=== PATIENT | female | born 1950 | race Caucasian/White ===

== ENCOUNTER 2016-04-23 08:33 | Day surgery (SDC) | payer MEDICARE, BC ==
[2016-04-16 14:04] LABS: HEMATOCRIT 35.4 % (36.0-48.0); HEMOGLOBIN 11.4 g/dL (12.0-16.0)
[2016-04-16 14:12] LABS: CALCIUM, SERUM 9.5 MG/DL (8.5-10.4); CHLORIDE, SERUM 104 MMOL/L (96-112); CO2 (CARBON DIOXIDE) 24 MMOL/L (24-34); GFR AFRICAN AMERICAN 55 ML/MIN (>=60); GFR NON AFRICAN AMERICAN 47 ML/MIN (>=60); POTASSIUM, SERUM 4.4 MMOL/L (3.5-5.3); SODIUM, SERUM 140 MMOL/L (135-148)
[2016-04-16 14:13] LABS: BUN (BLOOD UREA NITROGEN) 21 MG/DL (6-23); GLUCOSE, SERUM 120 MG/DL (60-99)
--- NOTE | ~2016-04-23 | OP ---
Record Of Operation [facility] [address] [place]. [address] NAME: LINA DAWSON : 48 STATUS : [place] [facility] [place] PAT#: [id number] AGE: 65 ADM/REG DATE : 04/23/16 MR#: [id number] REPORT SERV DATE: 04/23/16 DICTATED BY: SINCERE ZUÑIGA DATE: 04/23/16 REPORT STATUS : Draft TRANSCRIBED BY: MODL DATE: 04/23/16 DATE OF PROCEDURE: 04/23/2016 PREOPERATIVE DIAGNOSES: 1. Obstructive sleep apnea syndrome. 2. Septal deviation. 3. Bilateral inferior turbinate hypertrophy. 4. Uvular redundancy. 5. Chronic nasal obstruction. POSTOPERATIVE DIAGNOSES: 1. Obstructive sleep apnea syndrome. 2. Septal deviation. 3. Bilateral inferior turbinate hypertrophy. 4. Uvular redundancy. 5. Chronic nasal obstruction. PROCEDURES: 1. Uvulopalatopharyngoplasty. 2. Septoplasty. 3. Bilateral inferior turbinoplasty. SURGEON: Sincere Zuñiga M.D. ANESTHESIA: General. COMPLICATIONS: None. COUNTS: All counts correct following the procedure. ESTIMATED BLOOD LOSS: 25 mL. PREOPERATIVE INFORMED: We discussed the risks and benefits of surgery including, but not limited to bleeding, infection, possible CSF leak, possible septal perforation, possible saddle nose deformity, possible persistent nasal obstruction, possible need for revision surgery, possible uvulopalatal incompetence, possible persistent obstructive sleep apnea syndrome requiring further with the CPAP versus more advanced sleep surgery, and she understands the risks and benefits of surgery and consent is on chart. PROCEDURE IN DETAIL: The patient was brought to the operative suite and placed on the operating table in the supine position. General endotracheal anesthesia was initiated without incident using the laser endotracheal tube. The patient's head and neck was cleaned, prepped and draped in the usual sterile fashion. Following this, moistened eye pads were placed on the patient's eyes. Attention was then taken to the oral cavity. A Josue-Sage retractor was carefully inserted Record Of [facility] [address] [place]. [address] NAME: LINA DAWSON : 48 STATUS : REG [facility] [place] PAT#: [id number] AGE: 65 ADM/REG DATE : 04/23/16 MR#: [id number] REPORT SERV DATE: 04/23/16 DICTATED BY: SINCERE ZUÑIGA DATE: 04/23/16 REPORT STATUS : Draft TRANSCRIBED BY: WILIAM DATE: 04/23/16 in the oral cavity and used to retract the tongue anteriorly and inferiorly in order to visualize the oropharynx. The soft palate, uvula, and anterior tonsillar pillars were injected with 1% Lidocaine with 1:100,000 epinephrine for hemostasis. Approximately 6.0 cc. was used. Following this a # 12-blade scalpel was used to make an incision down both anterior tonsillar pillars then across the palate to the level of the base of the uvula. Attention was then taken to the nose and both sides of the septum, as well as the inferior turbinates were injected with 1% Lidocaine with 1:100,000 epinephrine for hemostasis. Approximately 12.0 cc. was used. Following this, a #15-blade scalpel was used to perform a left hemitransfixion incision down to the underlying septal cartilage. The mucoperichondrial flap was raised along the left side of the septum using a Meigs and Hopewell elevators. The mucoperiosteum was raised off of the maxillary crest using a Gamez elevator. A thin strip of cartilaginous septum along the maxillary crest was removed using the Hopewell elevator and the bony cartilaginous junction was using the Luis Felipe elevator. The mucoperiosteum was raised on both sides of the bony nasal septum. The deviated bony nasal septum was taken down using open [place] forceps and Tatiana forceps. The deviated maxillary crest was also removed using Tatiana forceps. This allowed the cartilaginous septum to swing back into the midline. The left hemitransfixion incision was then closed using interrupted 4-0 Chromic sutures and attention was then taken to the turbinates. Both inferior turbinates underwent submucous resection using the Xomed turbinates shaver in a systematic fashion. Both inferior turbinates were infractured and both the medial and lateral surfaces were cauterized using the harmonic scalpel. Both inferior turbinates were outfractured. Breathe-Easy septal splints were placed on both sides of the nasal septum and sutured in the midline using 2-0 Nylon suture. Following this, a bite guard was placed on the upper teeth and a laser Dedo laryngoscope was carefully inserted in the oral cavity and advanced down the midline tongue down to the vallecula region. The patient was then suspended from the Leon stand. Moistened towels were placed on the patient's face. The microscope was brought into the field and using the CO2 laser attachment with the micromanipulator attachment set at 7 ho, 200-millijoules, an inverted V-shaped area of the lingual tonsil tissue and base of tongue were systematically vaporized, enlarging the base of tongue airway. Once adequate tissue had been removed, any bleeding sites were cauterized using laryngeal suction cautery. The patient was then taken out of suspension and the Dedo laryngoscope was removed. The patient was then awakened from anesthesia, extubated, and taken to the recovery room in stable condition. AMERICO/WILIAM Sincere Zuñiga M.D. Record Of [address] [address] NAME: LINA DAWSON : 48 STATUS : REG [facility] [place] PAT#: [id number] AGE: 65 ADM/REG DATE : 04/23/16 MR#: [id number] REPORT SERV DATE: 04/23/16 DICTATED BY: SINCERE ZUÑIGA DATE: 04/23/16 REPORT STATUS : Draft TRANSCRIBED BY: WILIAM DATE: 04/23/16 / [id number] CC: Mamie Samson M.D. Tareck Kadrie, M.D. G Michael Ozborn, M.D.
[~2016-04-23 08:33] MED LIST: ACCUNEB INH; ALLERGY INJECTION SC; AMB10 PO; BIEST PO/SL; BIOIDENTICAL HORMONE; BYSTOLIC5 MG PO; CALTRA600D PO; COMPOUND HORMONE PO; CRESTOR5 MG PO; CYMBALTA60 PO; DIL4TAB PO; EXCEDRINTB PO; FERRETTS325 MG PO; FORTAMET500 MG PO; GLUCPH PO; IMITREX100 MG PO; LEVOXYL100 MCG PO; LEVOXYL137 MCG PO; LIDODERM T; LOP50; METAMUCIL CAN7 OZ PO; METHOC750B PO; METROGEL1 % TOP; NASONEX NAS; NORV5 PO; ONE A DAY VIT; ORACEA40 MG PO; OXYCOD PO; OXYCON10 PO; OXYCON20 PO; OXYCON40 PO; OXYCONTIN30 MG PO; PREV30 PO; PRIN20 PO; PRO PO/SL; PROAIR HFA INH; PROZAC PO; QNASL8.7 GM NAS; SINGULAIR1 PO; STOOL SOFTEN240 MG PO; SYMBICORT 160/41 INH INH; SYN075 PO; VICTOZA; VICTOZA IJ; VITAMIN D1000 UNI1 PO; VOLTAREN1 % TOP; XYZAL5 MG PO; ZANAFLEX 4 MG TA4 MG PO; [UNRECOGNIZED DRUG - REMARK]
== END 2016-04-23 23:59 | disposition home health service (06) ==
LOC: MSC 08:33
PROVIDERS: Otolaryngology
PROC: 0CTNXZZ Resection of Uvula, External Approach (ICD-10-PCS; principal; 2016-04-23 09:15)
PROC: 09QM0ZZ Repair Nasal Septum, Open Approach (ICD-10-PCS; 2016-04-23 09:15)
DX: J34.2 Deviated nasal septum (principal); J45.909 Unspecified asthma, uncomplicated; E11.9 Type 2 diabetes mellitus without complications; I10 Essential (primary) hypertension; G47.33 Obstructive sleep apnea (adult) (pediatric); J34.3 Hypertrophy of nasal turbinates; J34.89 Other specified disorders of nose and nasal sinuses; Z99.81 Dependence on supplemental oxygen; Z98.890 Other specified postprocedural states; Z79.899 Other long term (current) drug therapy; Z88.2 Allergy status to sulfonamides; Z88.8 Allergy status to other drugs, medicaments and biological substances
CPT/HCPCS: 80048; 82962; 85014; 85018; 88300; 88304; 93005; A9270-GY; J2250; J2405; J2710; J3010